=== PATIENT | male | born 1985 | race Caucasian/White ===

== ENCOUNTER 2017-01-26 14:30 | Emergency (ER) | payer BC ==
[2017-01-26] MEDS ORDERED: DIPH,PERTUSS,TET(ADACEL) VAC/PF 0.5 ML (Tdap) IM ONE (14:35)
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
[2017-01-26] MEDS ORDERED: Lidocaine 1% 10 MG/ML - 20 ML VIAL SUBCUT ONE (14:42)
[2017-01-26] MEDS ORDERED: LIDOCAINE HCL 1%/EPI 1:100,000 - 20 ML VIAL SUBCUT ONE (14:58)
[2017-01-26 17:20] VITALS: RESP 14; TEMP 97.9
== END 2017-01-26 16:07 | disposition home or self-care (01) ==
LOC: ER 14:30
DX: S51.812A Laceration without foreign body of left forearm, initial encounter (principal); W45.8XXA Other foreign body or object entering through skin, initial encounter; Y99.0 Civilian activity done for income or pay
CPT/HCPCS: 12002; 90471; 99282; J2001